=== PATIENT | female | born 1955 | race Caucasian/White ===

== ENCOUNTER → 2017-03-07 | Outpatient (CLI) | payer OTHER ==
[~2017-03-07] MED LIST: LACTCAP8 PO; PERC5TAB12 PO
--- NOTE | 2017-03-07 16:19 | RADRPT ---
EXAM DATE/TIME: 03/07/2017 15:58 [place] COMPARISON: No previous studies available for comparison. INDICATIONS : Evaluate for pneumothorax , pneumonia or communicable disease. Preop chest for cervical conization bi opsy on 03/21/17. No chest complaints at this time MEDICAL HISTORY : None. SURGICAL HISTORY : None. ENCOUNTER: Initial ACUITY: 1 day PAIN SCORE: 0/10 LOCATION: Bilateral chest FINDINGS: PA and lateral views of the chest demonstrate the lungs to be symmetrically aerated without evidence of mass, infiltrate or effusion. The cardiomediastinal contours are unremarkable. Osseous structure s are intact. CONCLUSION: 1. No acute cardiopulmonary disease. Alejandro Gil MD on March 07, 2017 at 16:16 Board Certified Radiologist. This report was verified electronically.
--- NOTE | 2017-03-07 20:00 | EKG ---
Date Performed: 03/07/2017 Time Performed: 15:28:17 PTAGE: 61 years EKG: Sinus rhythm NORMAL ECG NO PREVIOUS TRACING DOCTOR: Garrett Motley Interpretating Date/Time 03/07/2017 19:58:43
== END ==
LOC: CPRE 15:10
PROVIDERS: ATTEND Obstetrics & Gynecology Gynecologic Oncology
DX: Z01.810 Encounter for preprocedural cardiovascular examination (principal); Z01.811 Encounter for preprocedural respiratory examination; Z01.812 Encounter for preprocedural laboratory examination; D06.9 Carcinoma in situ of cervix, unspecified
CPT/HCPCS: 71020; 93005

== ENCOUNTER → 2017-03-21 | Day surgery (SDC) | payer OTHER ==
[~2017-03-21] VITALS: Ht 162.6 cm; Wt 57.7 kg
[~2017-03-21] MED LIST changes: +CHLORHEXIDINE GLUCONATE 2 % 1 PACK (2 CLOTHS) TOPICAL PRN; +DEXAMETHASONE SOD PHOS 4 MG/ML VIAL IV ONE; +DO NOT ADM ANY ANTICOAGULANT DRUGS PRN; +INSULIN HUMAN REGULAR 1,000 UNITS/10 ML VIAL SQ PRN; +KETOROLAC TROMETHAMINE 30 MG/ML (IVP) VIAL IV PUSH ONE; +KETOROLAC TROMETHAMINE 30 MG/ML (IVP) VIAL IV PUSH PRN; +LACTATED RINGER'S 1000 ML INJ 1,000 ML IV ONE; +LACTATED RINGER'S 1000 ML IV PRN; -LACTCAP8 PO; +LIDOCAINE HCL 1% 50 ML VIAL ONE; +LIDOCAINE HCL 1% PF 5 ML SYRINGE OTHER ONE; +METOPROLOL TARTRATE 25 MG TAB PO PRN; +ONDANSETRON HCL 4 MG/2 ML VIAL IV ONE; +POVIDONE IODINE 5% (ANTISEPSIS KIT) 4 APPLICATIONS EACH NARE PRN; +PROPOFOL 200 MG/20 ML AMP IV ONE; +SODIUM CHLORID 0.9% 500 ML IV PRN; +ceFAZolin INJ 1,000 MG VIAL ONE; +oxyCODONE/ACETAMINOPHEN 5 MG/325 MG TAB PO PRN
[2017-03-21 17:40] VITALS: BP 118/72; PULSE 68; RESP 18; TEMP 97.6; O2SAT 100
--- NOTE | 2017-03-21 21:03 | MP ---
cc: FABIENNE SAMUELS MD MOLPUS, KELLY L. MD DATE OF SURGERY 03/21/2017. PREOPERATIVE DIAGNOSIS High-grade cervical dysplasia POSTOPERATIVE DIAGNOSIS High-grade cervical dysplasia PROCEDURE Examination under anesthesia, cold knife conization of the cervix, endocervical and endometrial biopsy (fractional dilation and curettage) SURGEON Diandra Mixon MD [employer] [place] first aid instructor ANESTHESIA Laryngeal mask anesthesia ESTIMATED BLOOD LOSS 20 mL HISTORY A 61-year-old female previously had and abnormal Pap smear, led to biopsies of the ectocervix and endocervix, both of which showed high-grade dysplasia. She was referred to family practice office and followed up there. However, due to some anatomical abnormalities the decision was made against an office LEEP Procedure. She was referred to [facility] oncology. She was seen and counseled regarding high-grade dysplasia and the need for further evaluation. We recommend and examination under anesthesia, conization of the cervix with sampling of the endocervix as well as the endometrium given that previous endocervical sampling showed high-grade dysplasia. She is seen again in the preop holding area where the findings are reviewed, the plan of care is discussed, recommendations are made and she agrees to move forward with surgery. FINDINGS On exam under anesthesia, there is no appreciably enlarged inguinal or femoral lymph nodes. External genitalia without mass or lesion. The cervix is flush with the vaginal apex and in the resting anatomical position. Only the endocervical os can be visualized, but there is no cervical prominent. There is some diffuse atrophic changes to the vaginal mucosa. After tenaculum was used to grasp the anterior cervix and put on countertraction, the contour of the cervix became more clearly defined. Palpably it is normal, still a relatively small cervix but circumferentially smooth. After application of dilute acetic acid, there is acetowhite epithelial changes in the transformation zone and on the ectocervix circumferentially around the os. The uterus is slightly retroverted and sounds to 6.5 cm. There is no overt invasive cancer detected. The uterus and cervix are mobile. There is no parametrial nodularity or thickening. No obvious invasive tumor. There is scant amount of tissue obtained from endocervical and endometrial curettings. PROCEDURE IN DETAIL She was taken to the operating room placed in dorsal lithotomy position after laryngeal mask anesthesia was administered. Time-out was undertaken. She was identified by sight recognition and hospital ID bracelet and the proposed procedure was reviewed and confirmed. Exam under anesthesia was performed with findings as described above. She is prepped and draped in sterile fashion. Dilute acetic acid was applied. Exam was repeated. Palpation of the cervix and visualization allowed identification and the anterior cervix was grasped with a tenaculum, put on countertraction with anatomical findings as described above. Lidocaine epinephrine was injected circumferentially around the face of the ectocervix and 0 Vicryl sutures were placed in the lateral cervix at the 3 o'clock and 9 o'clock position in a [id number] fashion for hemostasis and countertraction. The uterine cavity had been sounded and the axis of the cervix and endometrium were identified using a lacrimal probe and a scalpel blade was used starting on the ectocervix laterally and angling in centrally and circumferentially toward the canal of the cervix to complete a cone biopsy which was removed and labeled as cone biopsy. The cervix was dilated slightly to allow an endocervical curette which was passed multiple times circumferentially yielding scant amount of tissue and all tissue was combined labeled as endocervical canal. The endocervix was then further dilated and small curette was introduced into the endometrial cavity. Endometrium was curetted circumferentially on all surfaces. Multiple passes, scant amount of tissue and the feedback was gritty on all surfaces. The cone bed was rendered hemostatic with cautery and then topical Monsel's solution. All sites were completely hemostatic. There were no remaining foreign objects in the vagina. Preliminary and final counts were correct. She was returned to dorsal supine position and was pending reversal of anesthesia when I left the operating room to precede her to the Post Anesthesia Care Unit. MD KELY Gant/ /3:21 PM /8:41 PM
== END | disposition home or self-care (01) ==
LOC: HSDC 11:29 → EDSTATUS 13:00
PROVIDERS: ATTEND Obstetrics & Gynecology Gynecologic Oncology
DX: N87.9 Dysplasia of cervix uteri, unspecified (principal)
CPT/HCPCS: 00940; 57520; 88305; 88307; J0690; J1100; J1885; J2405; J3010; J7120